=== PATIENT | female | born 1995 | race Hispanic/Latino ===

== ENCOUNTER 2017-03-05 04:08 | Emergency (ER) | payer MEDICAID, SELFPAY ==
[2017-03-05 05:27] LABS: #Basophils 0.1 thou/uL (0.0-0.2); #Eosinphils 0.2 thou/uL (0.0-0.7); #Lymphocytes 2.7 thou/uL (1.20-3.40); #Monocytes 0.9 thou/uL (0.11-0.59); #Neutrophils 8.1 thou/uL (1.40-6.50); %Basophils 0.6 % (0.0-1.0); %Eosinophils 1.6 % (0.0-10.0); %Lymphocytes 22.7 % (21.0-51.0); %Monocytes 7.7 % (0.0-10.0); Hematocrit 32.6 % (36.0-47.0); Mean Platelet Volume 7.7 fL (7.4-10.4); Red Blood Cell (RBC) Count 3.97 mill/uL (4.20-5.40)
[2017-03-05 05:44] LABS: ALT (SGPT) Less than 7 U/L (8-55); AST (SGOT) 11 U/L (5-34); Alkaline Phosphatase 77 U/L (40-150); Anion Gap 10 mmol/L (10-20); BUN (Urea Nitrogen) 11 mg/dL (7.0-18.7); Bilirubin, Total Less than 0.2 mg/dL (0.2-1.2); Calc. Creatinine Clearance 0 mL/min (70-130); Carbon Dioxide 24 mmol/L (22-29); Chloride 106 mmol/L (98-107); Estimated GFR-MDRD Greater than 90; Globulin 3.1 g/dL (2.4-3.5); Lipase 20 U/L (8-78); Protein, Total 7.3 g/dL (6.0-8.3)
[2017-03-05 07:14] LABS: Bilirubin Negative (Negative); Blood, Urine Moderate (Negative); Glucose, Urine (Dipstick) Negative (Negative); Ketone, Urine Negative (Negative); Nitrite Negative (Negative); Protein, Urine (Dipstick) Negative (Neg-Trace); Urobilinogen 0.2 mg/dL (0.2-1.0)
[2017-03-05 07:17] LABS: Bacteria/HPF None Seen HPF (None Seen); Hyaline Casts/LPF 0-3 HYALINE CAST LPF (0-3 Hyaline); RBC/HPF 0-3 HPF (0-3); Squamous Epithelial 0-3 HPF (0-3); WBC/HPF None Seen HPF (0-3)
[2017-03-05] MEDS ORDERED: Famotidine 20 MG TAB ONE (07:30)
[2017-03-05] MEDS ORDERED: Mag-Al 1200 mg/1200 mg/30 ML UDCUP ONE (07:30)
[2017-03-05] MEDS ORDERED: Lidocaine Viscous Sol 2% 15 ml UD Cup ONE (07:31)
--- NOTE | 2017-03-05 08:02 | ULT ---
RIGHT UPPER QUADRANT ULTRASOUND: DATE: 03/05/17. HISTORY: Abdominal pain. FINDINGS: The imaged pancreas is grossly unremarkable, the tail obscured by bowel gas. No focal liver lesion o r intrahepatic biliary dilatation is noted. The sonographic Villavicencio's sign is negative. There is a nonmobile stone in the region of the gallbladd er neck. Gallbladder wall thickness is upper limits of normal at approximately 3 mm. No pericholecy stic fluid is seen. The CVD measures 2.9 cm, within normal limits. The right kidney measures 11.2 cm in craniocaudal dimension and demonstrates no stone, hydronephrosis , or mass. IMPRESSION: Nonmobile gallstone in the gallbladder neck region. Sonographic Villavicencio's sign is negative and no per icholecystic fluid is seen. If there is clinical concern for acute cholecystitis, hepatobiliary scan suggested. POS: K[facility]AN
== END 2017-03-05 08:38 | disposition home or self-care (01) ==
LOC: ERS 04:08
DX: K80.20 Calculus of gallbladder without cholecystitis without obstruction (principal); D64.9 Anemia, unspecified
CPT/HCPCS: 36415; 76705; 80053; 81003; 81015; 81025; 83690; 85025